=== PATIENT | male | born 2000 | race Caucasian/White ===

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

== ENCOUNTER 2021-05-07 17:53 | Emergency (ER) | payer MEDICAID, SELFPAY ==
[~2021-05-07] VITALS: Ht 170.2 cm; Wt 122.9 kg
[~2021-05-07 17:53] MED LIST: ASPI81TA86 PO; BUSP10TA PO; CLON-412 PO
[2021-05-07] MEDS ORDERED: CLONI1TA PO (19:38)
[2021-05-07] MEDS ORDERED: cloNIDine 0.2 MG TAB PO ONE (19:40)
[2021-05-07 20:01] VITALS: BP 144/88
== END 2021-05-07 20:15 | disposition home or self-care (01) ==
LOC: M ED 17:53
DX: Z76.0 Encounter for issue of repeat prescription (principal); F41.9 Anxiety disorder, unspecified; Z79.899 Other long term (current) drug therapy

== ENCOUNTER 2021-12-11 01:03 | Emergency (ER) | payer MEDICAID ==
[~2021-12-11 01:03] MED LIST changes: +CLONI1TA PO
[2021-12-11 01:39] LABS: HEMOGLOBIN 15.4 g/dl (13.5-17.5); MEAN CORPUSCULAR HEMOGLOBIN 29.2 pg (27.0-33.0); MEAN CORPUSCULAR HGB CONC 33.5 g/dl (32.0-36.5); MEAN CORPUSCULAR VOLUME 87.3 fl (80.0-96.0); PLATELET COUNT, AUTOMATED 337 10^3/uL (150-450); RED BLOOD COUNT 5.27 10^6/uL (4.30-6.10); WHITE BLOOD COUNT 7.2 10^3/uL (4.0-10.0)
[2021-12-11 02:18] LABS: RSV AMPLIFICATION NEGATIVE (NEGATIVE)
[2021-12-11 02:33] LABS: ACETAMINOPHEN LEVEL < 2.0 UG/ML (10.0-30.0); ALBUMIN 4.5 GM/DL (3.2-5.2); ALT/SGPT 71 U/L (12-78); BILIRUBIN,DIRECT 0.1 MG/DL (0.0-0.2); BILIRUBIN,TOTAL 0.3 MG/DL (0.2-1.0); BLOOD UREA NITROGEN 12 MG/DL (7-18); CALCIUM LEVEL 9.4 MG/DL (8.5-10.1); CARBON DIOXIDE LEVEL 25 MEQ/L (21-32); CHLORIDE LEVEL 108 MEQ/L (98-107); CREATININE FOR GFR 1.06 MG/DL (0.70-1.30); ETHYL ALCOHOL (ETHANOL) < 0.003 % (0.000-0.010); GLOMERULAR FILTRATION RATE > 60.0 (>60); GLUCOSE, FASTING 111 MG/DL (70-100); SALICYLATE LEVEL < 1.7 MG/DL (5.0-30.0); SODIUM LEVEL 140 MEQ/L (136-145); TOTAL PROTEIN 8.4 GM/DL (6.4-8.2)
[2021-12-11 02:53] LABS: AMPHETAMINES LEVEL URINE NEGATIVE (NEGATIVE); BARBITURATES URINE NEGATIVE (NEGATIVE); BENZODIAZEPINES URINE NEGATIVE (NEGATIVE); CANNABINOIDS URINE NEGATIVE (NEGATIVE); COCAINE METABOLITE URINE NEGATIVE (NEGATIVE); METHADONE URINE NEGATIVE (NEGATIVE); OPIATES URINE NEGATIVE (NEGATIVE); PHENCYCLIDINE URINE NEGATIVE (NEGATIVE)
[2021-12-11 05:22] VITALS: BP 131/71
== END 2021-12-11 05:23 | disposition home or self-care (01) ==
LOC: M ED 01:03
DX: F32.9 Major depressive disorder, single episode, unspecified (principal); F43.0 Acute stress reaction; F41.9 Anxiety disorder, unspecified; F84.0 Autistic disorder; Z79.899 Other long term (current) drug therapy

== ENCOUNTER → 2022-05-22 | Outpatient (REF) | payer MEDICAID | LOC: M LAB REF 16:13 | PROVIDERS: ATTEND Physician Assistant | DX: J02.9 Acute pharyngitis, unspecified (principal) ==

== ENCOUNTER → 2025-01-29 | Outpatient (REF) | payer MEDICAID ==
[2025-01-29 18:26] LABS: PLATELET COUNT, AUTOMATED 315 10^3/uL (150-450)
[2025-01-29 18:30] LABS: APPEARANCE, URINE CLEAR (CLEAR); BACTERIA, URINE AUTO NEGATIVE (NEGATIVE); BILIRUBIN, URINE AUTO NEGATIVE (NEGATIVE); BLOOD, URINE BLOOD NEGATIVE (NEGATIVE); GLUCOSE, URINE (UA) AUTO 3+ mg/dL (NEGATIVE); KETONE, URINE AUTO 1+ mg/dL (NEGATIVE); LEUKOCYTE ESTERASE, URINE AUTO NEGATIVE (NEGATIVE); NITRITE, URINE AUTO NEGATIVE (NEGATIVE); PROTEIN, URINE AUTO NEGATIVE (NEGATIVE); RBC, URINE AUTO 0 /HPF (0-3); SPECIFIC GRAVITY URINE AUTO 1.037 (1.002-1.035); SQUAMOUS EPITHELIAL CELL UR AU 0 /HPF (0-6); UROBILINOGEN, URINE AUTO 0.2 mg/dL (0.0-2.0); WBC, URINE AUTO 1 /HPF (0-3)
[2025-01-29 18:44] LABS: CREATININE, URINE 37.0 MG/DL; MALB URINE SIEMENS < 3.0 MG/L
[2025-01-29 18:46] LABS: ALT/SGPT 13 U/L (7.0-40); AST/SGOT 10 U/L (<34); CALCIUM LEVEL 9.6 MG/DL (8.5-10.1); CARBON DIOXIDE LEVEL 26 MMOL/L (20-31); CHLORIDE LEVEL 95 MMOL/L (98-107); CHOLESTEROL LEVEL 246 MG/DL (<200); CHOLESTEROL RISK RATIO 4.72 (<5); CREATININE FOR GFR 0.63 MG/DL (0.70-1.30); GLOMERULAR FILTRATION RATE > 90.0 (>60); LDL CHOLESTEROL 137.5 MG/DL (<100); NON-HDL-C 193.9 MG/DL; POTASSIUM SERUM 4.0 MMOL/L (3.5-5.1); SODIUM LEVEL 133 MMOL/L (136-145); TRIGLYCERIDES LEVEL 282 MG/DL (<150)
== END ==
LOC: M LAB REF 16:49
PROVIDERS: ATTEND Student in an Organized Health Care Education/Training Program
DX: E11.65 Type 2 diabetes mellitus with hyperglycemia (principal)